=== PATIENT | female | born 1950 | race Caucasian/White ===

== ENCOUNTER 2025-01-19 16:40 | Emergency (ER) | payer MEDICARE, SELFPAY ==
[2025-01-19 17:59] VITALS: BP 122/63; PULSE 85; RESP 18; TEMP 37.3; O2SAT 97; BMI 30.4
--- NOTE | 2025-01-19 18:00 | ED_ITS ---
HPI - General Adult General Date Seen: 01/19/25 Chief complaint: Diarrhea Stated complaint: dehydrated, diarrhea, fatigue Time Seen by Provider: 01/19/25 17:59 History of Present Illness HPI narrative: 74 yo F with a past surgical history including Neil-en-Y gastric bypass (done by a surgeon at [facility] for about 17 years ago), appendectomy, and past medical history including recent diagnosis of hypertension and tremor (on propranolol) depression/anxiety (on fluoxetine) presenting to the ER today with her son and [id number]. Her concerns are diarrhea, generalized weakness and fatigue, also abdominal bloating and early satiety. She has been healthy and well over the past several years. She actually took a [place] through [facility] couple of months ago (along [place] [employer] [place] with stops in [facility]). She was not sick on her trip. She notes that after she got back from the trip, roughly early December she since then she has had trouble with her early satiety. Her appetite may be normal and she generally can feel hungry but whenever she eats she feels like her stomach starts to get full after a few bites and she just feels a bit nauseous, a bit bloated, and no longer hungry. She has been trying to drink fluids and stay hydrated. This is been lingering now for several weeks. Not really getting better, not getting worse. She flew from her home in [place], [place] a couple of days ago here to [place]. She is here to stay with her son and oivdjohh-si-bfe to help out when they were new baby is born. She does not have any known food suspicious food exposure. No recent antibiotics. Beginning 3 days ago on Saturday she has also developed diarrhea. She has multiple episodes of diarrhea per day. For the 1st couple of days the diarrhea was watery and brown and chunky. Today it is also kind of a light brownish gold mucus. No blood. Her nausea and bloating on our really changed. She is not running a fever. She is not really having much abdominal pain. She is just feeling weak and run down as if she is dehydrated. According to records from the [facility] records she did have a nurse triage phone call yesterday on 01/18. She is visiting from [place]. She was recently on a river cruise. She apparently had called in with abdominal bloating, diarrhea, poor appetite, low energy. Related Data Home Medications ?Medication ?Instructions ?Recorded ?Confirmed fluoxetine 40 mg capsule 40 mg PO DAILY 01/19/2501/05 propranolol 20 mg tablet 20 mg PO BID 01/19/25 Previous Rx's ?Medication ?Instructions ?Recorded loperamide 2 mg capsule (Imodium 2 mg PO Q4H PRN loose stool #10 01/19/25 A-D) caps ondansetron 4 mg disintegrating 4 mg PO Q8H PRN nausea and 01/19/25 tablet vomiting #10 tabs sulfamethoxazole 800 1 tab PO Q12H 5 days #10 tab s 01/19/25 mg-trimethoprim 160 mg tablet (Bactrim DS) Allergies Allergy/AdvReac Type Severity Reaction Status Date / Time No Known Drug Allergies Allergy Verified 01/19/25 19:56 Exam Narrative: Exam Narrative: Constitutional: Appears well-developed and well-nourished. Alert. Conversant. Non toxic. HENT: Head: Atraumatic. Nose: Nose normal. Mouth/Throat: Oral mucosa is clear . Mucous membranes are dry but not desiccated and cracked.. no trismus. Pharynx normal. Tonsils symmetric. No tonsillar enlargement, erythema, or exudate. Eyes: Conjunctivae normal. EOM normal. Pupils equal, round, and reactive to light. No scleral icterus. Neck: Normal range of motion. Neck supple. No tracheal deviation present. Cardiovascular: Normal rate, regular rhythm. No gallop. No friction rub. No murmur heard. Symmetric radial artery pulses Pulmonary/Chest: Effort normal. No stridor. No respiratory distress. No wheezes. No rales. No rhonchi . Abdominal: Soft. Bowel sounds normal. No distension. No mass. No tenderness. No rebound. No guarding. No masses. No CVA tenderness. Musculoskeletal: RUE: Normal range of motion. No tenderness. No deformity LUE: Normal range of motion. No tenderness. No deformity RLE: Normal range of motion. No edema. No tenderness. No deformity LLE: Normal range of motion. No edema. No tenderness. No deformity Neurological: Alert and oriented to person, place, and time. Normal strength. CN II-VII intact. No sensory deficit. GCS eye subscore is 4. GCS verbal subscore is 5. GCS motor subscore is 6. Normal coordination Skin: Skin is warm and dry. No rash noted. No pallor. Normal capillary refill. Psychiatric: Normal mood. Normal affect. Const: Vital Signs, click to edit/add: Vital Signs - 24 hr 01/19/25 17:59 Temperature 99.2 F Pulse Rate [Right Pulse Oximeter] 85 Respiratory Rate 18 Blood Pressure [Ri ght Upper Arm] 122/63 Pulse Oximetry 97 Oxygen Delivery Me thod Room Air Course Vital Signs Vital signs: Initial Vital Signs Temperature 99.2 F 01/19/25 17:59 Temperature Source Temporal Artery Scan 01/19/25 17:59 Pulse Rate 85 01/19/25 17:59 Pulse Rhythm Regular 01/19/25 17:59 Pulse Strength 3+ Normal 01/19/25 17:59 Respiratory Rate 18 01/19/25 17:59 Blood Pressure 122/63 01/19/25 17:59 Blood Pressure Mean 82 01/19/25 17:59 Blood Pressure Position Sitting 01/19/25 17:59 Pulse Oximetry 97 01/19/25 17:59 Oxygen Delivery Method Room Air 01/19/25 17:59 Vital Signs Temperature 99.2 F 01/19/25 17:59 Pulse Rate 85 01/19/25 17:59 Respiratory Rate 18 01/19/25 17:59 Blood Pressure 122/63 01/19/25 17:59 Pulse Oximetry 97 01/19/25 17:59 Oxygen Delivery Method Room Air 01/19/25 17:59 Temperature 99.2 F 01/19/25 17:59 Pulse Rate 85 01/19/25 17:59 Respiratory Rate 18 01/19/25 17:59 Blood Pressure 122/63 01/19/25 17:59 Pulse Oximetry 97 01/19/25 17:59 Oxygen Delivery Method Room Air 01/19/25 17:59 Medications Administered Medications: Discontinued Medications Generic Name Dose Route Start Last Admin Trade Name Freq PRN Reason Stop Dose Admin Sodium Chloride 1,000 mls @ 1,000 mls/hr 01/19/25 18:30 01/19/25 19:42 0.9 % Sodium Chloride 1000 Ml IV 01/19/25 19:29 Infused .Q1H PIERRE Infusion Ceftriaxone Sodium 1 gm/ 100 mls @ 200 mls/hr 01/19/25 19:46 01/19/25 20:48 Sodium Chloride IVPB 01/19/25 19:47 Infused ONCE ONE Infusion Ondansetron HCl 4 mg 01/19/25 18:30 01/19/25 18:59 Ondansetron 2 Mg/Ml Inj IVP 01/19/25 18:31 4 mg ONCE ONE Administration Potassium Bicarbonate 50 meq 01/19/25 19:45 01/19/25 20:03 Potassium Bicarb 25 Meq Effervescent Tab PO 01/19/25 19:46 50 meq ONCE ONE Administration Medical Decision Making MDM Narrative Medical decision making narrative: 74-year-old female with a history of gastric bypass surgery presenting to the ER today with about a 1 month or 6 week history of early satiety and bloating with eating small amounts of food now superimposed with a 3 day history of a diarrhea illness with mostly liquidy diarrhea but some mucousy diarrhea today. Differential is broad. The patient's symptoms and exam could be consistent with a viral GI infection. There is no high fever, severe pain, bilious or bloody emesis, blood in the stool, severe abdominal pain, but she did have some mucousy diarrhea today. She also recently had traveled to [place] about 2 months ago. Therefore will order stool culture. Although she has no recent antibiotics will also add on C diff. it sounds like her travel was to [place] where there is generally good sanitation and she has no specific high risk food exposure. No other recent travel. She has a low-grade fever. Labs show leukopenia and mild thrombocytopenia which could be related to viral illness. Hemoglobin is normal. Sodium low, potassium lower leg related to GI losses. BUN and creatinine are normal. Anion gap is normal. Glucose normal. Venous lactic is normal, arguing against bowel ischemia. Transaminases are mildly abnormal with an AST 100 and ALT of 63. Total bili and alk-phos are normal. These LFT findings are nonspecific. She is not having any abdominal pain or any pain in the right upper quadrant. Lipase is normal at 222. Because of her history Neil-en-Y gastric bypass with her symptoms, we did do a CT scan to see if there was any signs of internal hernia or bowel obstruction or other acute inflammatory process causing her diarrhea such as diverticulitis or colitis. CT scan is normal. I don't see any evidence for complication of her bypass, or colitis, or diverticulitis, or appendicitis, bowel obstruction, abscess, bowel perforation, or other surgical emergency. Labs show no concerning electrolyte disturbance or renal failure. After meds given the patient is feeling better. At this point, the patient is non-septic appearing and well hydrated.I think the patient can be managed as an outpatient. She received IV saline here in the ER and was feeling better and less weak. Low potassium was supplemented with oral potassium bicarbonate. She was tolerating p.o. intake with a few oz of water and a few crackers. This is about which she has been taking in for the past several weeks, perhaps a little bit more. Generally doing well. We have discussed oral rehydration strategies. They understand and can perform the needed interventions at home. I have provided a prescription for antiemetics to facilitate oral hydration (zofran ODT) and imodium for diarrhea. We have discussed the signs and symptoms of worsening dehydration. They understand the need for immediate reevaluation if any of these symptoms occur. They are also directed to obtain close outpatient follow up within 2-3 days. Lab Data Labs: Lab Results 01/19/25 01/19/25 Range/Units 18:31 18:55 WBC 3.34 L (4.50-11.00) K/uL RBC 3.49 L (4.00-5.20) m/uL Hgb 12.4 (12.0-16.0) gm/dL Hct 37.8 (33.0-51.0) % MCV 108 H (80-100) fL MCH 36 H (26-34) pg MCHC 33 (32-36) gm/dL RDW Coeff of Jennie 14.3 (11.5-15.5) % Plt Count 139 L (140-440) K/uL Neut % (Auto) 69.1 (42.0-72.0) % Lymph % (Auto) 13.2 L (20-44) % [place] % (Auto) 14.1 H (0.0-11.0) % Eos % (Auto) 2.7 (0.0-7.0) % Baso % (Auto) 0.6 (0.0-3.0) % Neut # (Auto) 2.30 (1.7-7.0) K/uL Lymph # (Auto) 0.40 L (0.90-2.90) K/uL Limestone # (Auto) 0.50 (0.00-0.90) K/UL Eos # (Auto) 0.10 (0.00-0.50) K/uL Baso # (Auto) 0.00 (0.00-0.30) K/uL Abs Immat Gran (auto) 0.00 (0.00-0.30) K/uL Imm/Tot Granulo (auto) 0.3 % Sodium 134 L (135-149) mmol/L Potassium 3.3 L (3.6-5.1) mmol/L Chloride 101 (96-114) mmol/L Carbon Dioxide 26 (20-32) mmol/L Anion Gap 7 (7-15) mEq/L BUN 5 L (7-30) mg/dL Creatinine 0.6 (0.5-1.5) mg/dL Estimated Creat Clear 50.54 Estimated GFR 95 ml/min Glucose 116 H (60-115) mg/dL Lactate 1.4 (0.5-1.9) mmol/L Calcium 9.6 (8.4-10.6) mg/dL Total Bilirubin 0.7 (0.1-1.5) mg/dL AST 100 H (12-35) U/L ALT 63 H (4-35) U/L Alkaline Phosphatase 123 (40-150) U/L Total Protein 7.2 (6.0-8.3) g/dL Albumin 3.8 (3.3-5.0) g/dL Lipase 222 (23-300) U/L Urine Color Blossom A (Yellow) Urine Appearance Clear (Clear) Urine pH 6.0 (5.0-8.5) Ur Specific [place] 1.025 (1.000-1.030) Urine Protein 1+ A (Negative) Urine Glucose (UA) Negative (Negative) Urine Ketones 2+ A (Negative) Urine Blood 1+ A (Negative) Urine Nitrite Positive A (Negative) Urine Bilirubin Negative (Negative) Urine Urobilinogen 0.2 (0.2-1.0) Ur Leukocyte Esterase 1+ A (Negative) Urine RBC 2-5 A (0-2) Urine WBC 5-10 A (0-5) Ur Squamous Epith Cells Moderate A (None-Few) Urine Bacteria Moderate A (None) Fine Granular Casts Few A (None) Monoscreen Negative (Negative) Imaging Data CT scan - abdomen: Attestation: I have reviewed the pertinent imaging results. Radiologist's impression: IMPRESSION: No acute intra-abdominal/pelvic abnormality. Hepatic steatosis. Discharge Plan Discharge Clinical Impression: Diarrhea, Dehydration, Acute hypokalemia, Abnormal LFTs, Acute UTI Patient Disposition: Home, Self-Care Condition: Guarded Instructions: Dehydration (ED), Urinary Tract Infection in Women (DC), Acute Diarrhea (ED) Additional Instructions: As we discussed, the cause for symptoms is not clear at this time. We suspect that your diarrhea is probably caused by an infection. Your lab results suggest the infection may be viral but given your recent travel and the mucus in your stool we have ordered a stool culture to check for bacterial infections causing your diarrhea. If your cultures come back positive with bacteria someone from the hospital will contact you and put you on the right antibiotic. If your infection is viral, it may take a few more days and it should get better on its own. Urine sample is abnormal, suggesting you have a bladder infection. Please take the antibiotic twice a day to treat your bladder infection. The ER will contact you by phone if your urine culture grows unusual strain of bacteria or if we need to change the antibiotic for your UTI. If you are not dramatically improved within 72 hours, please recheck with your doctor's office or come back to the ER for a recheck. While you are sick, do your best to drink plenty of fluids and stay hydrated. You can use the Zofran prescription medication if needed for nausea. You can use Imodium as needed for diarrhea. Imodium is available [email or web address], but I did send a prescription for Imodium to your pharmacy at [facility] (you can purchase the Imodium by prescription or OTC, whichever is less expensive). Your lab work shows that your blood counts (white blood cells and platelets) are slightly low and your liver function tests are slightly off. These could be related to the same infection. However it is very important for you to get a checkup with your regular doctor within the next couple of weeks to have these labs rechecked. Prescriptions: New loperamide [Imodium A-D] 2 mg capsule 2 mg PO Q4H PRN (Reason: loose stool) Qty: 10 0RF Rx Instructions: administer after each loose stool until symptoms controlled; do not exceed 8 mg per 24 hrs sulfamethoxazole-trimethoprim [Bactrim DS] 800-160 mg tablet 1 tab PO Q12H 5 Days Qty: 10 0RF ondansetron 4 mg tablet,disintegrating 4 mg PO Q8H PRN (Reason: nausea and vomiting) Qty: 10 0RF No Action propranolol 20 mg tablet 20 mg PO BID fluoxetine 40 mg capsule 40 mg PO DAILY Follow Up/Referrals: Provider,Not a Local [Primary Care Provider, Family Practice] Stand Alone Forms: [employer] Info Instructions
[2025-01-19 18:48] LABS: Appearance Urine Clear (Clear)
--- OUTSIDE RECORDS SUMMARY | 2025-01-19 18:52 | XMS_ITS | Data Portability ---
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 Plan of Treatment Reminders Order Date Submit Date Provider Last Modified By Organization Details Last Modified Time Details Appointments None recorded. Lab None recorded. Referral None recorded. Procedures None recorded. Surgeries None recorded. Imaging XR, knee, 3 view - VIEW RIGHT: Knee (B/L PA Standing, Lateral, [place]) CPT: 44076,RT 2023 024 [email or web address] 17 [facility], Replaced by [facility] [address], [facility] [place] [address], [place], [address], 4 09:49:50 Medication Orders Voltaren Arthritis Pain 1 % topical gel 2023 024 [email or web address] [id number], [address], [place], [address], 4 19:53:21 Patient TargetsNo targets recorded. Patient Instructions Encounter Date Encounter Id Patient Instructions Last Modified By Organization Details Last Modified Time 10/08/2023 [id number] learning about healthy weight [email or web address] Not available 10/08/2023 19:38:16 Reason for Referral None Reported. Results Created Date Observation Date Name Description Value Unit Range Abnormal Flag Note LastModifiedBy Organization Detail LastModifiedTime 10/08/19 24 XR, knee, 3 view No observ ation record ed. [email or web address] [facility] [address], [place], [address], 10/09/2023 09:49:49 Result Notes None recorded. Problems Name Problem SNOMED Code Status Onset Date Resolution Date Notes Provider Name and Address Organization Details Recorded Time Knee joint prosthesis present 375740122003 Active 2023 Rebecca robles [facility] 4 09:50:26 Problem Notes None recorded. Procedures Surgical History Date Name Laterality Status Provider Name and Address Organization Details Recorded Time 3 Most Recent Bone Density completed Merle Kamara [facility] 10/08/2023 17:35:40 Imaging Results None recorded. Procedure Notes None recorded. Medical Equipment None Reported. Allergies No known drug allergies Medications Name Sig Start Date Stop Date Status Note LastModified by Organization Details LastModified Time amoxicillin 500 mg capsule TAKE 4 CAPSULES BY MOUTH 1 HOUR BEFORE DENTAL PROCEDURE 10/05 completed Not Available Not Available Not Available promethazin e-DM 6.25 mg-15 mg/5 mL oral syrup TAKE 5 ML BY MOUTH EVERY 6 HOURS NEEDED 10/05 completed Not Available Not Available Not Available azithromyci n 250 mg tablet TAKE 2 TABLETS BY MOUTH TODAY, THEN TAKE 1 TABLET DAILY FOR 4 DAYS DIRECTED 10/05 completed Not Available Not Available Not Available benzonatate 200 mg capsule TAKE 1 CAPSULE BY MOUTH 3 TIMES A DAY FOR 7 DAYS NEEDED FOR COUGH 10/05 completed Not Available Not Available Not Available valacyclovi r 500 mg tablet TAKE 1 TABLET BY MOUTH EVERY 12 HOURS FOR 10 DAYS 10/05 completed Not Available Not Available Not Available amoxicillin 500 mg tablet Take 4 tablets by mouth 1 hour before dental procedure 10/05 completed Not Available Not Available Not Available acyclovir 800 mg tablet TAKE 1 TABLET BY MOUTH TWICE A DAY ( EVERY 12 HOURS ) FOR 5 DAYS AT THE OUTBREAK OF SYMPTOMS 10/05 completed Not Available Not Available Not Available ipratropium bromide 42 mcg (0.06 %) nasal spray INSTILL 2 SPRAYS INTO BOTH NOSTRILS THREE TIMES DAILY FOR 14 DAYS 10/05 completed Not Available Not Available Not Available fluoxetine 20 mg capsule TAKE 1 CAPSULE BY MOUTH EVERY DAY active Not Available Not Available No t Available doxycycline hyclate 100 mg tablet TAKE 1 TABLET BY MOUTH TWICE A DAY 10/05 completed Not Available Not Available Not Available diclofenac 1 % topical gel APPLY 2 GRAMS TO THE AFFECTED AREA(S) BY TOPICAL ROUTE 4 TIMES PER DAY active Not Available Not Available No t Available Paxlovid 300 mg (150 mg x 2)-100 mg tablets in a dose pack TAKE 3 TABLETS BY MOUTH TWICE A DAY FOR 5 DAYS 10/05 completed Not Available Not Available Not Available Vitals Date Recorded Body height Body mass index (BMI) Body weight Provider Name and Address Organization Details Last Updated DateTime 10/08/2023 175.26 cm 30 kg/m2 17147.61 g Rebecca Nash [facility] 10/08/2023 18:35:33 Social History Question Answer Notes LastModified by Organizat ion Details LastModified Time Tobacco Smoking Status Never Smoker Merle robles [facility] 10/08/2023 17:35:49 Last Dental Exam 09/12/2022 [email or web address] Informat ion not available 10/08/2023 Are You On Disability Or Applying For It? No [email or web address] Information not available 10/08/2023 Employment Status Part-time Information not available 02/23/2021 Last Day Of Work 10/03/2023 Informat ion not available 10/08/2023 Illicit Drug Use? No Information not available 02/23/2021 What Was The Date Of Your Most Recent Tobacco Screening? 10/08/2023 [email or web address] Information not available 10/08/2023 Has Tobacco Cessation Counseling Been Provided? No [email or web address] Information not available 10/08/2023 Sex: Unknown Functional Status Question Answer Note LastModified by Organizat ion Details LastModified Time Do you use any illicit or recreational drugs? No [email or web address] Information not available 10/08/2023 What is your level of alcohol consumption? 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 Family History Relationship Description Onset Age of this Age Resolved Age Notes LastModified by Organization Details LastModified Time Unspecified Relation Family history unknown First Degree Blood Relati ve [email or web address] Not available 02/22/2021 22:40:26 Medical History Condition Response Depression Y Gynecological History Statement/Question Response Most Recent Bone Density 09/19/2022 Obstetrics History GPAL:G 0 P 0 0 0 0 Past Encounters Encounter ID Performer Location Encounter Start Date Encounter Closed Date Diagnosis/Indication Diagnosis SNOMED-CT Code Diagnosis ICD10 Code Diagnosis Note [id number] Jerrell Wood MD [facility] [place] [address] [address] 10/08/2023 17:26:39 10/08/2023 19:20:27 Pain in right knee 3788217689 17664 M25.561 Increased body mass index 10157076 E66.3 Patient was educated about healthy weight Knee joint prosthesis present 0073853172 02 Z96.651 M25.561 M25.461 73 year old female with history of right total knee arthroplas ty done in 2007. Total knee implants in good alignment without signs of loosening and no other acute osseous abnormalit ies noted. Patient is clinically and radiograph ically stable. I have prescribed Voltaren gel to treat inflammati on in the knee. If the pain in her right knee continues we will obtain a bone scan study. Follow-up for yearly surveillan ce with new x-rays, certainly sooner if needed. Patient voiced understand ing, agreement and willingnes s to proceed with the plan. All questions were answered in detail and to patient satisfacti on. Health Concerns Section Related Observation LastModified by Organization Detai ls LastModified Time None Recorded Concern Status LastModified by Organization Details LastModified Time None Recorded Advance Directives Directive None Recorded Payers Insurance Date Sequence Insurance Name Policy Number Policy Rios Covered Member ID Rios Member ID Guarantor Name 10/10/2023 2 [employer] (MEDICARE SUPPLEMENT) Lauren Giron [id number] Lauren Giron 10/04/2023 1 MED[place] (MEDIC[place] Lauren Giron [id number] Lauren Giron Notes Date Note Type Note Provider Name and Address Organization Details Recorded Time 10/08/2023 text/html Patient QuestionsReported bypatient.What is the main reason we are seeing you today?pain Which body parts are primarily affected?knee - right Approximately how long ago did the problem start?10+ years; 2 weeks How did the problem begin?no specific incident or unknown Which best describes the recent course of you symptoms?worsening Have you had any prior nonsurgical treatment for this problem?OTC medications - helped a lot Have you had any prior testing for this problem?x-rays Have you had any prior surgery for this problem?yes; R TKA 2007 DR. LAURITA FOSS Were you seen in an emergency room or urgent care?no Do you have any current work restrictions?noKneeRep orted bypatient.Pain level:right knee - 01/14 Timing:occasional; related to activity Quality:aching; sharp; stabbing Aggravating factors:walking; standing Alleviating factors:heat Associated symptoms:none The patient presents for evaluation of right knee pain. She underwent right total knee arthroplasty in [address] Laurita Foss. The knee did well for many years. She has noted the more recent onset of medially based right knee pain with activity. Initial movements after sitting for a long time feel painful, describes the pain as sharp. However, once she gets going, the pain resolves by itself. Taking Advil helps reduce the pain and discomfort temporarily. Patient was doing well until about one month ago. She does not recall any injury or trauma to the area. Her left knee was replaced 5 years ago (2017) with Dr. Harper. The [place] [address],[place] [address], [place], [address], [facility] 10/09/2023 21:07:02 OBGyn Episode No OBEpisode recorded.
--- OUTSIDE RECORDS SUMMARY | 2025-01-19 18:52 | XMS_ITS | Data Portability ---
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 Cancer screening was reviewed and updated as necessary based on patient's age and risks. Osteoporosis screening was reviewed and discussed. Patient was screened for future falls risk using the CDC s STEADI questions. [email or web address] Not available 12/02/2019 17:25:54 Plan of Treatment Reminders Order Date Submit Date Provider Last Modified By Organization Details Last Modified Time Details Appointments None recorde d. Lab hepatit is C virus Ab, serum 2020 021 [email or web address] Ismael_phxbetty colby MD Lab, [address], [place], [address], 10:57:46 HbA1c (hemogl obin A1c), blood 2020 021 [email or web address] Ismael_phxbetty colby MD Lab, [address], [address], [place], [address], 10:57:45 CBC 2020 021 [email or web address] Ismael_phkristyn colby MD Lab, [address], [address], [place], [address], 10:57:45 CMP, serum or plasma 2020 021 rbeamLisa colby MD Lab, [address], [address], [place], [address], 10:57:45 lipid panel, serum 2020 021 rbeaLisa colby MD Lab, [address], [address], [place], [address], 10:57:46 TSH, serum, reflex free T4 2020 021 rbdean colby MD Lab, [address], [address], [place], [address], 10:57:46 vitamin B12, serum 2020 021 [email or web address] colby MD Lab, [address], [address], [place], [address], 10:57:45 vitamin D, 25-hydr oxy, total, serum 2020 021 [email or web address], [address], [address], [place], [address], 10:57:45 iron, serum 2020 021 rbcandidaLisa colby MD Lab, [address], [address], [place], [address], 10:57:46 ferriti n, serum or plasma 2020 021 [email or web address] _phx_giovana colby MD Lab, [address], [place], [address], 1 10:57:46 TIBC (total iron-bi nding capacit y), serum 2020 021 [email or web address] _phx_giovana colby MD Lab, [address], [place], [address], 1 10:57:46 vitamin B12, serum 2019 020 [email or web address] Ismael_phxbetty colby MD Lab, [address], [address], [place], [address], 0 10:46:07 folate, serum 2019 020 [email or web address] _phxbetty colby MD Lab, [address], [address], [place], [address], 0 10:46:07 magnesi um, RBC 2019 020 [email or web address] _phx_giovana colby MD Lab, [address], [place], [address], 0 10:46:07 lipid panel, serum 2019 020 [email or web address] _phx_giovana colby MD Lab, [address], [place], [address], 0 10:46:07 CBC 2019 020 [email or web address] Vm_phx_giovana colby MD Lab, [address], [place], [address], 0 10:46:07 CMP, serum or plasma 2019 020 [email or web address] Vm_phx_giovana colby MD Lab, [address], [place], [address], 0 10:46:07 Referral gastroe nterolo gist referra l 2020 021 DORIAN Luna Chatman, [address], [place], [address], 2 23:41:56 gastroe nterolo gist referra l 2019 020 [facility] Luna Chatman, [address], [address], [place], [address], 0 16:55:43 Procedures None recorde d. Surgeries None recorde d. Imaging MAMMO, screeni ng, digital , bilater al 2020 021 [email or web address] Not available 1 11:16:42 DEXA 2019 020 [email or web address] Not available 0 10:45:20 MAMMO, screeni ng, digital , bilater al 2019 020 [email or web address] Not available 0 10:45:20 Medication Orders fluoxet ine 20 mg capsule 2019 020 [email or web address] [facility]Ph[facility]acy #[id number], [address] [facility] , [place], [address], 1 13:09:35 Tuberso l 5 tub. unit/0. 1 mL intrade rmal injecti on solutio n 2019 020 [email or web address] Not available 0 10:39:34 Patient TargetsNo targets recorded. Patient Instructions Encounter Date Encounter Id Patient Instructions Last Modified By Organization Details Last Modified Time 12/04/2019 [id number] ANNUAL WELLNESS VISIT ASSESSMENT AND PERSONALIZED WELLNESS PLAN * To promote good health please follow these recommendations: Diet, Physical Activity and Healthy Weight: -Eat a diet low in trans and saturated fats and high in fiber, fruits and vegetables -Take 0551-6912 mg of calcium through diet and supplements -Engage in regular physical activity and weight bearing exercise -Aim to achieve and maintain ideal body mass index Tobacco and Alcohol Use: -Don't smoke or use other tobacco products -Avoid excessive alcohol intake Medications: -If you use any medications (prescriptions, hbuz-ghi-feizlaf, supplements, herbal), always do so as directed by your health care provider -Avoid misuse of any substances in a manner that is not in accordance with appropriate use Safety: -Use seat belts whenever in the car -Use sunscreen regularly to reduce the risk of skin cancer -Test smoke detectors and CO detectors every 6 months -Remove loose rugs and use hand rails on steps and in bath Cognition: -Being intellectually engaged may benefit the brain. Lots of activities can keep your mind active. For example, read books and magazines. Play games. Take or teach a class. Learn a new skill or hobby. Work or volunteer. -People who engage in meaningful activities, like volunteering or hobbies, say they feel happier and healthier. Vaccinations: -Get your yearly influenza vaccine Screenings Breast Cancer Screening (Mammogram): Next due 01/06/2020 Cervical Cancer Screening (Pap Smear): Not needed Osteoporosis Screening (Bone Density Scan/DEXA): Next due- now Colorectal Cancer Screening: Colonoscopy next due- now Immunizations: Pneumococcal Conjugated Vaccine (PCV13): Completed Pneumococcal Polysaccharide Vaccine (PPSV 23): Completed Influenza (Flu) Vaccine: Due next fall/winter Advance Care Plan/Directives: Advance Care Plan/Directives already in place If you have any questions with regards to your care plan, or need to schedule an appointment, please contact our office. *Recommended services are based on (a) services covered by Medicare, (b) U.S. Preventive Services Task Force & Advisory Committee on Immunization Practices guidelines, and (3) individual health status and risks [email or web address] Not available 12/04/2019 11:10:46 02/01/2021 [id number] pneumococcal polysaccharide vaccine: care instructions Not available 02/02/2021 00:03:12 advance care planning: care instructions Not available 02/01/2021 13:18:58 advance directives: care instructions [email or web address] Not available 02/01/2021 13:18:58 It was good to s ee you in the office today for your Medicare Annual Wellness Visit. You have been provided some information on healthy nutrition, including a diet rich in fruits and vegetables, minimizing simple carbohydrates, salt, and saturated fats. I want to encourage regular cardiovascular exercise such as walking at least 30 minutes daily, 5 times per week. Please remember to schedule any preventive health measures that we talked about today. You have also been provided education on fall prevention and community-based lifestyle interventions to help reduce health risks and promote healthy living in your Annual Wellness folder. Screening Recommendations 1. Vaccines Pneumonia: Ordered PCV 23 Influenza: This Fall. 2. Mammography Screening: Ordered 3. Colorectal Cancer Screening: Colonoscopy (every 5years) Ordered 4. Annual Depression Screening 5. Annual Alcohol Screening 6. Annual Fall Risk Screening 7. Annual Health Risk Assessment Not available 02/01/2021 13:18:21 3 mof up for depression Not available 02/01/2021 13:20:41 Reason for Referral Darklight Inspector Referral for Screening for malignant neoplasm of colon eval and treat Referring Physician: Margarito Rosenberg, Family Medicine, Encounter Date: 12/04/2019 Darklight Inspector Referral for Screening for malignant neoplasm of colon Referring Physician: Denzel Thakkar, Family Medicine, Encounter Date: 02/01/2021 Results Created Date Observation Date Name Description Value Unit Range Abnormal Flag Note LastModifiedBy Organization Detail LastModifiedTime 02/23/20 21 02/22/2021 TIBC iron 117.0 ug/dL 49.1 - 213.0 Not Available Ismael_bronwyn colby MD Lab [address] [facility] [address], [place], [address], 02/22/2021 16:58:20 02/23/20 21 02/22/2021 TIBC TIBC(calcula jono) 323.1 ug/dL 149.0 - 451.4 Not Available Mary colby MD Lab [address], [place], [address], 02/22/2021 16:58:20 02/23/20 21 02/22/2021 TIBC iron saturation(c alculated) 36 % 15 - 50 Not Available Mary colby MD Lab [address] [place] [address], [place], [address], 02/22/2021 16:58:20 02/23/20 21 02/22/2021 ENRIQUE TIN ferritin 206.8 NG/mL 10.5 - 306.8 Not Available Mary colby MD Lab [address] [place] [address], [place], [address], 02/22/2021 16:58:21 02/23/20 21 02/23/2021 HEP C VIRUS AB HEP C AB ONLY HCV hep C virus Ab <0.1 s/co_ ratio 0.0-0. 9 Negat cody: < 0.8 Indet ermin ate: 0.8 - 0.9 Posit cody: > 0.9 The CDC recom mends that a posit cody HCV antib araseli resul t be follo wed up with a HCV Nucle ic Acid Ampli ficat ion test (5507 13). Not Available Mary colby MD Lab [address] [place] [address], [place], [address], 02/23/2021 11:22:11 02/23/20 21 02/22/2021 CBC WBC 3.7 10 3.9 - 10.0 low Not Available Mary colby MD Lab [address] [place] [address], [place], [address], 02/23/2021 11:22:11 02/23/20 21 02/22/2021 CBC RBC 4.23 10 3.93 - 6.08 Not Available Mary colby MD Lab [address] [place] [address], [place], [address], 02/23/2021 11:22:11 02/23/20 21 02/22/2021 CBC hemoglobin 14.1 g/dL 11.2 - 17.5 Not Available Marvinxbetty lasha [facility] [address] [place] [address], [place], [address], 02/23/2021 11:22:11 02/23/20 21 02/22/2021 CBC hematocrit 43.7 % 34.2 - 51.4 Not Available Ismael_phxbetty colby MD Lab [address] [place] [address], [place], [address], 02/23/2021 11:22:11 02/23/2002/22/2021 CBC MCV 103 U 79 - 100 high Not Available Darinphxbetty colby MD Lab [address] [place] [address], [place], [address], 02/23/2021 11:22:11 02/23/20 21 02/22/2021 CBC MCH 33.3 % 25.6 - 32.3 high Not Available Darinphxbetty colby MD Lab [address] [place] [address], [place], [address], 02/23/2021 11:22:11 02/23/20 21 02/22/2021 CBC MCHC 32.3 % 32.2 - 36.5 Not Available Marvinxbetty colby MD Lab [address] [place] [address], [place], [address], 02/23/2021 11:22:11 02/23/20 21 02/22/2021 CBC RDW 12.6 % 11.6 - 14.4 Not Available Darinphxbetty colby MD Lab [address] [place] [address], [place], [address], 02/23/2021 11:22:11 02/23/20 21 02/22/2021 CBC segmented neutrophils % 45.9 % 34.0 - 71.1 Not Available Vm_phx_giovana e Lab [address] [address], [place], [address], 02/23/2021 11:22:11 02/23/20 21 02/22/2021 CBC segmented neutrophils # 1.68 10 1.56 - 6.13 Not Available Vm_phx_giovana e Lab [address] [address], [place], [address], 02/23/2021 11:22:11 02/23/20 21 02/22/2021 CBC lymphocytes % 35.2 % 19.3 - 53.1 Not Available Ismael_phx_giovana e Lab [address] [address], [place], [address], 02/23/2021 11:22:11 02/23/20 21 02/22/2021 CBC lymphocytes # 1.29 10 1.18 - 3.74 Not Available Ismael_phx_giovana colby Lab [address] [address], [place], [address], 02/23/2021 11:22:11 02/23/20 21 02/22/2021 CBC monocytes % 10.1 % 4.7 - 12.5 Not Available Ismael_phxbetty colby Lab [address] [address], [place], [address], 02/23/2021 11:22:11 02/23/20 21 02/22/2021 CBC monocytes # 0.37 10 0.24 - 0.86 Not Available Vm_phx_giovana e [facility] [address] [address], [place], [address], 02/23/2021 11:22:11 02/23/20 21 02/22/2021 CBC eosinophils % 7.7 % 0.7 - 7.0 high Not Available Ismael_phx_giovana e Lab [address] [address], [place], [address], 02/23/2021 11:22:11 02/23/20 21 02/22/2021 CBC eosinophils # 0.28 10 0.05 - 0.54 Not Available Mary colby Lab [address] [place] [address], [place], [address], 02/23/2021 11:22:11 02/23/20 21 02/22/2021 CBC basophils % 1.1 % 0.1 - 1.2 Not Available Mary colby Lab [address] [address], [place], [address], 02/23/2021 11:22:11 02/23/20 21 02/22/2021 CBC basophils # 0.04 10 0.01 - 0.08 Not Available Mary lasha [facility] [address] [place] [address], [place], [address], 02/23/2021 11:22:11 02/23/20 21 02/22/2021 CBC platelets 192 10 140 - 420 Not Available Mary lasha [facility] [address] [place] [address], [place], [address], 02/23/2021 11:22:11 02/23/20 21 02/22/2021 COMPR EHENS CODY METAB OLIC PANEL sodium 142 mmol/ L 135 - 145 Not Available Mary lasha [facility] [address] [address], [place], [address], 02/23/2021 11:22:12 02/23/20 21 02/22/2021 COMPR EHENS CODY METAB OLIC PANEL potassium 4.8 mmol/ L 3.5 - 5.2 Not Available Mary lasha [facility] [address] [address], [place], [address], 02/23/2021 11:22:12 02/23/20 21 02/22/2021 COMPR EHENS CODY METAB OLIC PANEL chloride 105 mmol/ L 97 - 108 Not Available Mary colby MD Lab [address] [place] [address], [place], [address], 02/23/2021 11:22:12 02/23/20 21 02/22/2021 COMPR EHENS CODY METAB OLIC PANEL carbon dioxide 30 mmol/ L 20 - 32 Not Available Mary colby MD Lab [address] [place] [address], [place], [address], 02/23/2021 11:22:12 02/23/20 21 02/22/2021 COMPR EHENS CODY METAB OLIC PANEL glucose 84 mg/dL 69 - 99 Not Available Mary colby MD Lab [address] [address], [place], [address], 02/23/2021 11:22:12 02/23/20 21 02/22/2021 COMPR EHENS CODY METAB OLIC PANEL BUN 11 mg/dL 6 - 26 Not Available Stormy colby MD Lab [address] [place] [address], [place], [address], 02/23/2021 11:22:12 02/23/20 21 02/22/2021 COMPR EHENS CODY METAB OLIC PANEL creatinine 0.7 mg/dL 0.5 - 1.4 Not Available Mary colby MD Lab [address] [place] [address], [place], [address], 02/23/2021 11:22:12 02/23/20 21 02/22/2021 COMPR EHENS CODY METAB OLIC PANEL SGOT (AST) 22 U/L 12 - 40 Not Available Mary colby MD Lab [address] [address], [place], [address], 02/23/2021 11:22:12 02/23/20 21 02/22/2021 COMPR EHENS CODY METAB OLIC PANEL SGPT (ALT) 13 U/L 7 - 52 Not Available Brandan colby MD Lab [address] [place] [address], [place], [address], 02/23/2021 11:22:12 02/23/20 21 02/22/2021 COMPR EHENS CODY METAB OLIC PANEL alkaline phosphatase 88 U/L 29 - 121 Not Available Mary colby MD Lab [address] [place] [address], [place], [address], 02/23/2021 11:22:12 02/23/20 21 02/22/2021 COMPR EHENS CODY METAB OLIC PANEL total bilirubin 0.6 mg/dL 0.3 - 1.1 Not Available Mary colby MD Lab [address] [place] [address], [place], [address], 02/23/2021 11:22:12 02/23/20 21 02/22/2021 COMPR EHENS CODY METAB OLIC PANEL calcium 9.3 mg/dL 8.6 - 10.4 Not Available Mary colby MD Lab [address] [place] [address], [place], [address], 02/23/2021 11:22:12 02/23/20 21 02/22/2021 COMPR EHENS CODY METAB OLIC PANEL albumin 4.1 g/dL 3.5 - 5.8 Not Available Mary colby MD Lab [address] [address], [place], [address], 02/23/2021 11:22:12 02/23/20 21 02/22/2021 COMPR EHENS CODY METAB OLIC PANEL total protein 6.7 g/dL 6.0 - 9.0 Not Available Mary colby MD Lab [address] [place] [address], [place], [address], 02/23/2021 11:22:12 02/23/20 21 02/22/2021 COMPR EHENS CODY METAB OLIC PANEL eGFR (non-aa)(adelso culated) 82.46 mL/mi n >60.00 Not Available Mary colby MD Lab [address] [address], [place], [address], 02/23/2021 11:22:12 02/23/20 21 02/22/2021 COMPR EHENS CODY METAB OLIC PANEL eGFR (aa)(calcula jono) 99.78 mL/mi n >60.00 Not Available Mary colby MD Lab [address] [address], [place], [address], 02/23/2021 11:22:12 02/23/20 21 02/22/2021 LIPID PANEL cholesterol 219 mg/dL 69 - 200 high Not Available Mary colby MD Lab [address] [address], [place], [address], 02/23/2021 11:22:13 02/23/20 21 02/22/2021 LIPID PANEL triglyceride s 224 mg/dL 29 - 150 high Not Available Mary colby MD Lab [address] [address], [place], [address], 02/23/2021 11:22:13 02/23/20 21 02/22/2021 LIPID PANEL HDL 55 mg/dL 22 - 93 Not Available Mary colby MD Lab [address] [address], [place], [address], 02/23/2021 11:22:13 02/23/20 21 02/22/2021 LIPID PANEL LDL(calculat ed) 120 mg/dL 0 - 130 Not Available Mary colby MD Lab [address] [address], [place], [address], 02/23/2021 11:22:13 02/23/20 21 02/22/2021 LIPID PANEL cholesterol/ HDL risk(calcula jono) 4.0 mg/dL 2.9 - 5.7 Not Available Mary colby MD Lab [address] [place] [address] [address], [place], [address], 02/23/2021 11:22:13 02/23/20 21 02/22/2021 HGBA1 C W/EAG HGBA1C w/EAG 4.9 % 4.5 - 5.6 Not Available Mary colby MD Lab [address] [place] [address] [address], [place], [address], 02/23/2021 11:22:13 02/23/20 21 02/22/2021 HGBA1 C W/EAG average blood glucose(calc ulated) 94 mg/dL Accor ding to ADA guide lines , hemog lobin A1C <7.0% repre sents optim al contr joshua non-p regna nt diabe tic patie nts. Diffe rent metri cs may apply to speci fic patie nt popul ation s. Stand ards of Medic al Care in Diabe jairo-2 013. Diabe jairo Care. 2013; 36:s1 1-s66 For the purpo se of ofelia savage for the prese nce of diabe jairo: <5.7% Consi stent with the absen ce of diabe jairo 5.7-6 .4% Consi stent with incre ased risk for diabe jairo (pred iabet es) >or 6.5% Consi stent with diabe jairo Diabe tic educa tion recom jared d for A1c >7% Curre ntly, no conse nsus exist s for use of hemog lobin A1C for diagn osis of diabe jairo for child nayana. Not Available Mary colby MD Lab [address] [place] [address] [address], [place], [address], 02/23/2021 11:22:13 02/23/20 21 02/22/2021 TSH WITH REFLE X TO FREE T4 TSH 2.8 uIU/m L 0.5 - 5.3 Not Available Mary colby MD Lab [address] [place] [address], [place], [address], 02/23/2021 11:22:14 02/23/20 21 02/22/2021 VITAM IN B12 vitamin B12 547 pg/mL 230 - 1050 Not Available [facility] [address] [place] [address] [address], [place], [address], 02/23/2021 11:22:14 02/23/20 21 02/22/2021 VITAM IN D vitamin D 37 30 - 100 Defic iency <20 Insuf ficie ncy 21-29 Suffi cienc y 30-10 0 Toxic ity >101 Not Available [facility] [address] [place] [address] [address], [place], [address], 02/23/2021 11:22:15 03/04/20 20 03/04/2020 DEXA, axial skele ton Indica tion: postme kenanaus al; screen ing for osteop orosis ; prior fractu re; Referr ing Provid er: MILAGRO SILVERMAN DO Study: Bone densit ometry was perfor med. Exam Date: March 04, 2020 Access ion number : [id number] Bone Densit y: ------ ------ ------ ------ ------ ------ ------ ------ ------ ------ ----- Region BMD T-scor e Z-scor e Classi ficati on ------ ------ ------ ------ ------ ------ ------ ------ ------ ------ ----- AP Spine (L1-L4 ) 1.071 0.2 2.3 Normal Femora l Neck (Left) 0.642 -1.9 -0.1 Osteop enia Total Hip (Left) 0.760 -1.5 0.0 Osteop enia ------ ------ ------ ------ ------ ------ ------ ------ ------ ------ ----- [facility] Organ[facility] zation criter ia for BMD impres juan f classi fy patien ts as: Normal (T-sco re at or above -1.0), Osteop enia (T-sco re betwee n -1.0 and -2.5), or Osteop orosis (T-sco re at or below -2.5). 10-estellaa r Fractu re Risk(1 ): ------ ------ ------ ------ ------ ------ ------ ------ ------ ------ ----- Major Osteop orotic Fractu re 20% Hip Fractu re 4.0% ------ ------ ------ ------ ------ ------ ------ ------ ------ ------ ----- Report ed Risk Factor s: US (Melita lewis), Neck BMD=0. 642, BMI=30 .3, previo us fractu re, alcoho l use (1) FRAX(R ) Versio n 3.08. Fractu re probab ility calcul ated for an untrea jono patien t. Fractu re probab ility may be lower if the ----- Page Break ----- patien t has receiv ed treatm ent. Impres juan f: The patien t has low bone mass, based on the Left Femora l Neck T-scor e. The patien t has an estima jono ten-ye ar risk of hip fractu re of 4% and an estima jono ten-ye ar risk of major fractu re of 20%, based on the WHO FRAX algori thm. The patien t has risk factor s, includ ing: excess cody alcoho l use, previo us fractu re. Discus juan f: BONE DENSIT Y IS LOW AT ONE OR MORE SKELET AL SITES. THE PATIEN T'S BMD AND CLINIC AL RISK FACTOR S CONTRI BUTE TO THIS PATIEN T'S HIGH RISK OF FRACTU RE. This patien t's lowest T-scor e is low at one or more skelet al sites. It meets the World Health Organi zation 's (WHO) criter ia for low bone mass (T-sco re betwee n -1.0 and -2.5). The patien t's 10-yea r risk of hip fractu re and 10 year risk of a major osteop orotic fractu re as calcul ated by FRAX exceed s the thresh old where pharma cologi adelso therap y is recomm ended by the Nation al Osteop orosis Founda tion (NOF). Carlos Manueleve r, all treatm ent decisi ons requir e clinic al judgme nt and consid eratio n of indivi dual patien t factor s, includ ing patien t prefer ences, comorb iditie s, previo us drug use, risk factor s not captur ed in the FRAX model (e.g., frailt y, falls, vitami n D defici ency, increa sed bone turnov er, interv al signif icant declin e in bone densit y) and possib le under or overes timati on of fractu re risk by FRAX. The patien t should follow a health ful lifest yle (good nutrit ion with adequa te calciu m and vitami n D, and approp riate weight -beari ng exerci se). Follow -Up: Consid er a repeat BMD and Verteb ral Fractu re Assess ment (VFA) exam in 2 years or sooner if medica lly necess mey, to reasse ss this patien t's status . Interp reted By: ADELE HUDDLESTON MD Signat ure Date: 2019 13:26: 58 Perfor med at [facility] [address], and interp reted by ADELE HUDDLESTON MD INTERFACE [facility] [address], [place], [address], 03/04/2020 17:05:37 03/04/20 20 03/04/2020 DEXA, axial skele ton No observ ation record ed. [facility] [address], [place], [address], 03/07/2020 14:27:17 03/04/20 20 03/04/2020 MAMMO , scree janette, bilat eral EXAM: MAMMOG FUENTES 3D DIGITA L SCREEN ING BILATE RAL ACCESS ION: [id number] INDICA TION: Screen ing mammog leroy. Patien t is asympt omatic . COMPAR YAHAIRA: February 03, 2019, MAMMOG FUENTES BILATE RAL DIGITA L SCREEN ING perfor med at [facility]. January 15, 2018, MAMMOG FUENTES BILATE RAL DIGITA L SCREEN [facility]G [facility]. TECHNI QUE: Full field digita l CC and MLO views of both breast s were perfor med. Digita l breast tomosy nthesi s was perfor med and used in the interp retati on of images . Study review ed by Perpetu er Aided Detect ion (CAD). Breast Densit y: The breast parenc hyma is almost entire ly fatty. FINDIN GS: Right Breast : No suspic ious mass, moses ectura l distor tion or cluste r of microc alcifi cation s is identi fied. Left Breast : No suspic ious mass, moses ectura l distor tion or cluste r of microc alcifi cation s is identi fied. IMPRES JUAN F: No mammog raphic signs of malign isidro. ASSESS MENT: BIRADS : 1 - Negati ve RECOMM ENDATI ON: 1. Routin e screen ing mammog leroy Bilate ral in 1 year. In compli ance with MQSA regula tions and ACR guidel valeria, a letter statin g the findin gs of this examin ation will be provid ed to your renuka gold. ----- Page Break ----- Interp reted By: TROY Kingston MD Signat ure Date: 2019 14:05: 01 Perfor med at [facility], and interp reted by TROY Kingston MD INTERFACE [facility] [address], [place], [address], 03/04/2020 18:08:21 03/04/20 20 03/04/2020 MAMMO , scree janette, digit al, bilat eral No observ ation record ed. [id number] [facility] [address], [place], [address], 03/07/2020 14:27:17 08/09/19 22 08/09/2021 MAMMO , scree janette, tomos ynthe sis, bilat eral EXAM: MAMMOG FUENTES 3D DIGITA L SCREEN ING BILATE RAL ACCESS ION: [id number] HISTOR Y: Screen ing mammog leroy. Renuka gold is asympt omatic . COMPAR YAHAIRA: March 04, 2020, MAMMOG FUENTES BILATE RAL 3D DIGITA L SCREEN ING perfor med at [facility]. February 03, 2019, MAMMOG FUENTES BILATE RAL DIGITA L SCREEN ING perfor med at [facility]. TECHNI QUE: Full field digita l CC and MLO views of both breast s were perfor med. Digita l breast tomosy nthesi s was perfor med and used in the interp retati on of images . Study review ed by Comput er Aided Detect ion (CAD). Breast Densit y: The breast parenc hyma is compos ed of scatte red fibrog landul ar densit ies. FINDIN GS: Right Breast : No suspic ious mass, moses ectura l distor tion or cluste r of microc alcifi cation s is identi fied. Left Breast : No suspic ious mass, moses ectura l distor tion or cluste r of microc alcifi cation s is identi fied. IMPRES JUAN F: No mammog raphic signs of malign isidro. ASSESS MENT: BIRADS : 1 - Negati ve RECOMM ENDATI ON: 1. Routin e screen ing mammog leroy Bilate ral in 1 year. In compli ance with MQSA regula tions and ACR guidel valeria, a letter statin g the findin gs of this examin ation will be provid ed to your patien t. ----- Page Break ----- Interp reted By: JERROD ARIAS RD, MD Signat ure Date: 2021 08:47: 55 Perfor med at [facility] and interp reted by JERROD ARIAS RD, MD INTERFACE [employer] [address] [place] [address], [address], 08/09/2021 11:08:20 08/09/19 22 08/09/2021 MAMMO , ofelia savage, digit al, bilat eral No observ ation record ed. RIO RANCHO [employer] [facility] [address] [facility] [address], [place], [address], 08/11/2021 15:42:47 Result Notes Documentation Provider Name and Address Organization Details Recorded Time Dexa, Axial Skeleton : Indication: postmenopausal; screening for osteoporosis; prior fracture; Referring Provider: MARGARITO BARKER DO Study: Bone densitometry was performed. Exam Date: March 04, 2020 Accession number: [id number] Bone Density: ------- Region BMD T-score Z-score Classification ------- AP Spine (L1-L4) 1.071 0.2 2.3 Normal Femoral Neck (Left) 0.642 -1.9 -0.1 Osteopenia Total Hip (Left) 0.760 -1.5 0.0 Osteopenia ------- World Health Organization criteria for BMD impression classify patients as: Normal (T-score at or above -1.0), Osteopenia (T-score between -1.0 and -2.5), or Osteoporosis (T-score at or below -2.5). 10-year Fracture Risk(1): ------- Major Osteoporotic Fracture 20% Hip Fracture 4.0% ------- Reported Risk Factors: [place] (), Neck BMD=0.642, BMI=30.3, previous fracture, alcohol use (1) FRAX(R) Version 3.08. Fracture probability calculated for an untreated patient. Fracture probability may be lower if the ----- Page Break ----- patient has received treatment. Impression: The patient has low bone mass, based on the Left Femoral Neck T-score. The patient has an estimated ten-year risk of hip fracture of 4% and an estimated ten-year risk of major fracture of 20%, based on the WHO FRAX algorithm. The patient has risk factors, including: excessive alcohol use, previous fracture. Discussion: BONE DENSITY IS LOW AT ONE OR MORE SKELETAL SITES. THE PATIENT'S BMD AND CLINICAL RISK FACTORS CONTRIBUTE TO THIS PATIENT'S HIGH RISK OF FRACTURE. This patient's lowest T-score is low at one or more skeletal sites. It meets the World Health Organization's (WHO) criteria for low bone mass (T-score between -1.0 and -2.5). The patient's 10-year risk of hip fracture and 10 year risk of a major osteoporotic fracture as calculated by FRAX exceeds the threshold where pharmacological therapy is recommended by the National Osteoporosis Foundation (NOF). However, all treatment decisions require clinical judgment and consideration of individual patient factors, including patient preferences, comorbidities, previous drug use, risk factors not captured in the FRAX model (e.g., frailty, falls, vitamin D deficiency, increased bone turnover, interval significant decline in bone density) and possible under or overestimation of fracture risk by FRAX. The patient should follow a healthful lifestyle (good nutrition with adequate calcium and vitamin D, and appropriate weight-bearing exercise). Follow-Up: Consider a repeat BMD and Vertebral Fracture Assessment (VFA) exam in 2 years or sooner if medically necessary, to reassess this patient's status. Interpreted By: VICKI HUDDLESTON MD Signature Date: 03/04/2020 13:26:58 Performed at [facility], and interpreted by VICKI HUDDLESTON MD Not Available [facility] 03/04/2020 17:05:37 Mammo, Screening, Bilateral : EXAM: MAMMOGRAM 3D DIGITAL SCREENING BILATERAL INDICATION: Screening mammography. Patient is asymptomatic. COMPARISON: February 03, 2019, MAMMOGRAM BILATERAL DIGITAL SCREENING performed at [facility]. January 15, 2018, MAMMOGRAM BILATERAL DIGITAL SCREENING performed at [facility]. TECHNIQUE: Full field digital CC and MLO views of both breasts were performed. Digital breast tomosynthesis was performed and used in the interpretation of images. Study reviewed by Computer Aided Detection (CAD). Breast Density: The breast parenchyma is almost entirely fatty. FINDINGS: Right Breast: No suspicious mass, architectural distortion or cluster of microcalcifications is identified. Left Breast: No suspicious mass, architectural distortion or cluster of microcalcifications is identified. IMPRESSION: No mammographic signs of malignancy. ASSESSMENT: BIRADS: 1 - Negative RECOMMENDATION: 1. Routine screening mammography Bilateral in 1 year. In compliance with MQSA regulations and ACR guidelines, a letter stating the findings of this examination will be provided to your patient. ----- Page Break ----- Interpreted By: TROY PORTILLO MD Signature Date: 03/04/2020 14:05:01 Performed at [facility], and interpreted by TROY PORTILLO MD Not Available [facility] 03/04/2020 18:08:21 Mammo, Screening, Tomosynthesis, Bilateral : EXAM: MAMMOGRAM 3D DIGITAL SCREENING BILATERAL HISTORY: Screening mammography. Patient is asymptomatic. COMPARISON: March 04, 2020, MAMMOGRAM BILATERAL 3D DIGITAL SCREENING performed at [facility]. February 03, 2019, MAMMOGRAM BILATERAL DIGITAL SCREENING performed at [facility]. TECHNIQUE: Full field digital CC and MLO views of both breasts were performed. Digital breast tomosynthesis was performed and used in the interpretation of images. Study reviewed by Computer Aided Detection (CAD). Breast Density: The breast parenchyma is composed of scattered fibroglandular densities. FINDINGS: Right Breast: No suspicious mass, architectural distortion or cluster of microcalcifications is identified. Left Breast: No suspicious mass, architectural distortion or cluster of microcalcifications is identified. IMPRESSION: No mammographic signs of malignancy. ASSESSMENT: BIRADS: 1 - Negative RECOMMENDATION: 1. Routine screening mammography Bilateral in 1 year. In compliance with MQSA regulations and ACR guidelines, a letter stating the findings of this examination will be provided to your patient. ----- Page Break ----- Interpreted By: CLAUDIA VUONG MD Signature Date: 08/09/2021 08:47:55 Performed at [facility] and interpreted by CLAUDIA VUONG MD Not Available [facility] 08/09/2021 11:08:20 Problems Name Problem SNOMED Code Status Onset Date Resolution Date Notes Provider Name and Address Organization Details Recorded Time Bypass of stomach Active 2019 KAI CORDERO null[place] [facility] 17:30:13 Osteoarthritis 523646404 Active 2019 KAI CORDERO null, [facility] 0 17:30:24 Knee pain Active 2019 KAI CORDERO null, [facility] 0 17:30:35 History of bariatric surgical procedure 694847089 Active 2021 Denzel Thakkar MD [address], [place], [address], [facility]/[place] 2 09:28:12 Major depression in remission 12103593 Active 2021 Denzel Thakkar MD [address], [place], [address], [facility] 2 09:28:38 Problem Notes None recorded. Procedures Surgical History Date Name Laterality Status Provider Name and Address Organization Details Recorded Time 02/06/20 22 Q Medication Review was completed today 1159F/1160F [facility], avoned [facility] 01/24/2022 10:36:26 02/06/20 22 Q Presence or Absence of urinary incontinence was assessed 1090F cancelled [facility] 01/24/2022 10:36:26 02/06/20 22 Q Activities of daily living were assessed(functio nal status) 1170F [facility] 01/24/2022 10:36:26 02/06/20 22 Q Advanced Care plan not currently documented/will provide plan information today 1124F [facility] 01/24/2022 10:36:26 02/06/20 22 AWV 0438/0439 [facility], avoned [facility] 01/24/2022 10:36:26 02/06/20 22 Q Medications obtained, updated, or reviewed G8427 [facility], [place]oned [facility]/[place] 01/24/2022 10:36:26 02/02/20 21 Q Medication Review was completed today 1159F/1160F completed [facility] 01/30/2021 13:39:26 02/02/20 21 Q Presence or Absence of urinary incontinence was assessed 1090F completed [facility] 01/30/2021 13:39:26 02/02/20 21 Q Activities of daily living were assessed(functio nal status) 1170F completed [facility] 01/30/2021 13:39:26 02/02/20 21 Q Advanced Care plan not currently documented/will provide plan information today 1124F completed [facility] 01/30/2021 13:39:26 02/02/20 21 AWV 0438/0439 completed [facility] 01/30/2021 13:39:26 02/02/20 21 Q Medications obtained, updated, or reviewed G8427 completed [facility] 01/30/2021 13:39:26 02/04/20 19 completed [facility] 12/02/2019 17:37:33 06/07/20 18 Knee Replacement completed [facility] 12/04/2019 10:40:52 07/08/19 [facility] [place] 12/02/2019 17:37:14 07/08/19 15 completed [facility] 12/02/2019 17:37:26 07/08/19 15 Most Recent Bone Density completed [facility] 12/04/2019 10:41:40 04/27/20 14 Colonoscopy completed Lizette Christian [facility] 08/09/2021 23:41:18 Gastric bypass for obesity completed [facility]note 3[place] 12/02/2019 17:33:37 release of tendon completed [facility]note 3[place] 12/02/2019 17:34:53 injection of cortisone completed [facility][note 3]/[place] 12/02/2019 17:35:54 procedure on wrist completed [facility]note 3[place] 12/02/2019 17:36:58 Knee Replacement completed [facility]note 3[place] 12/04/2019 10:41:02 Imaging Results None recorded. Procedure Notes None recorded. Medical Equipment None Reported. Allergies No known drug allergies Medications Name Sig Start Date Stop Date Status Note LastModified by Organization Details LastModified Time azithromyci n 250 mg tablet 12/03 completed Not Available Not Available Not Available Tubersol 5 tub. unit/0.1 mL intradermal injection solution Inject 0.1 mL by intraderm al route. 12/03 completed Not Available Not Available Not Available fluocinonid e 0.05 % topical ointment APPLY TO AFFECTED AREA NIGHTLY active Not Available Not Available No t Available amoxicillin 500 mg tablet TAKE 4 TABLETS BY MOUTH 1 HOUR PRIOR TO DENTAL APPT/ PROCEDURE 02/01 completed Not Available Not Available Not Available fluoxetine 20 mg capsule TAKE 1 CAPSULE BY MOUTH EVERY DAY 02/01 completed Not Available Not Available Not Available Gavilyte-C 240 gram-22.72 gram-6.72 gram-5.84 gram oral solution USE DIRECTED active Not Available Not Available No t Available Vitals Date Recorded Body height Body temperature Provider N easton and Address Organization Details Last Updated DateTime 12/04/2019 175.26 cm 97.9 [degF] [facility][note 3[place] 12/04/2019 10:40:23 Date Recorded Body height Body mass index (BMI) Body weight Oxygen saturation Oxygen saturation in Arterial blood by Pulse oximetry Heart rate Body temperature Systolic And Diastolic Provider Name and Address Organization Details Last Updated DateTime 07/28/202 1 175.26 cm 31.3 kg/m2 92482.5 8 g 96 % 96 % 82 /min 97.7 [degF] 130/74 mm[Hg] MIGUEL VOGEL [facility]/[place] 12:39:00 Social History Question Answer Notes LastModified by Organizat ion Details LastModified Time Tobacco Smoking Status Never Smoker KAI NATALIE robles, [facility]- [place] 12/02/2019 17:32:17 How Many Years Have You Consumed Alcohol? 48 Information not available 02/01/2021 Are You Blind Or Do You Have Difficulty Seeing? No Information not available 02/01/2021 What Is Your Level Of Caffeine Consumption? Moderate Information not available 02/01/2021 Are You Deaf Or Do You Have Serious Difficulty Hearing? No Information not available 02/01/2021 What Type Of Diet Are You Following? REGULAR Information not available 02/01/2021 What Is The Highest Grade Or Level Of School You Have Completed Or The Highest Degree You Have Received? [id number] Information not available 02/01/2021 Who Is Your Employer? [employer] Information not available 02/01/2021 What Was The Date Of Your Most Recent Tobacco Screening? 02/01/2021 Information not available 02/01/2021 How Many Children Do You Have? 3 Information not available 02/01/2021 Have You Ever Been Counseled For Unhealthy Alcohol Use? No Information not available 02/01/2021 What Is Your Relationship Status? Information not available 02/01/2021 Do You Use Your Seat Belt Or Car Seat Routinely? Yes Information not available 02/01/2021 Are You Sexually Active? No Information not available 02/01/2021 Are There Any Smokers In Your House? No Information not available 02/01/2021 Do You Participate In Social Media? Yes Information not available 02/01/2021 What Types Of Sporting Activities Do You Participate In? Walking Information not available 02/01/2021 Do You Use Sunscreen Routinely? Yes Information not available 02/01/2021 Has Tobacco Cessation Counseling Been Provided? No Information not available 02/01/2021 On What Date Was Tobacco Cessation Counseling Provided? 02/01/2021 Information not available 02/01/2021 Have You Recently Traveled Abroad? No Information not available 02/01/2021 Are You Currently In School? No Information not available 02/01/2021 Sex: Unknown Functional Status Question Answer Note LastModified by Organizat ion Details LastModified Time Do you use any illicit or recreational drugs? No Information not available 02/01/2021 Do you or have you ever used any other forms of tobacco or nicotine? No Information not available 02/01/2021 What is your level of alcohol consumption? Moderate Information not available 02/01/2021 Are you currently employed? Yes Information not available 02/01/2021 Do you have transportation difficulties? No Information not available 02/01/2021 Are you able to walk? YESWOREST Information not available 02/01/2021 Are you able to care for yourself? 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 No Information not available 02/01/2021 Do you or have you ever used e-cigarettes or vape? Never used electronic cigarettes [email or web address] Information not available 12/02/2019 What is your exercise level? Occasional Information not available 02/01/2021 Mental Status Question Answer Note LastModified by Organizat ion Details LastModified Time Do you feel stressed (tense, restless, nervous, or anxious, or unable to sleep at night)? [id number] Information not available 02/01/2021 Do you have difficulty concentrating, remembering or making decisions? No Information no t available 02/01/2021 Family History Relationship Description Onset Age of this Age Resolved Age Notes LastModified by Organization Details LastModified Time Father No current problems or disability [email or web address] Not available 17:30:52 Mother No current problems or disability [email or web address] Not available 17:30:52 Medical History No medical history recorded. Gynecological History Statement/Question Response 02/03/2019 07/08/2014 Most Recent Bone Density 07/08/2014 07/08/2014 Obstetrics History GPAL:G 0 P 0 0 0 0 Immunizations Vaccine Type Date Status Note Provider Nam e and Address Organization Details Recorded Time pneumococcal polysaccharide PPV23 1 completed [facility] 02/01/2021 14:19:50 zoster live 5 completed [facility] 02/01/2021 12:39:39 Influenza, split virus, trivalent, PF 9 completed [facility] 02/01/2021 12:39:39 COVID-19, mRNA, LNP-S, PF, 30 mcg/0.3 mL dose 0 completed [facility] 02/01/2021 12:39:39 COVID-19, mRNA, LNP-S, PF, 30 mcg/0.3 mL dose 1 completed [facility] 02/01/2021 12:39:39 Pneumococcal conjugate PCV 13 7 completed [facility]/[place] 02/01/2021 12:39:39 Influenza, high-dose, quadrivalent, PF 0 completed [facility] 02/01/2021 12:39:39 COVID-19, mRNA, LNP-S, PF, 30 mcg/0.3 mL dose 1 completed [facility] 02/01/2021 12:39:39 Influenza, adjuvanted, quadrivalent, PF 1 completed Tiffany Jaramillomyrongisella robles, [facility]- [place] 03/28/2021 07:41:39 zoster recombinant 1 completed Tiffany Jaramilloluh travis, [facility]- [place] 03/28/2021 07:42:05 Past Encounters Encounter ID Performer Location Encounter Start Date Encounter Closed Date Diagnosis/Indication Diagnosis SNOMED-CT Code Diagnosis ICD10 Code Diagnosis Note [id number] Margarito Jung, DO [facility] [address] [place] [address] 08/11/2019 11:29:01 08/11/2019 11:52:20 Tuberculosis screening 225556419 Z11.1 [id number] Margarito Jung, DO [facility] [address] [place] [address] 12/04/2019 10:38:27 12/04/2019 11:14:47 Adult health examination 889463604 Z00.00 PREVENTATI VE GENERAL MEDICAL EXAM A. Recommenda tions: 150 minutes of aerobic activity weekly or 10,000 steps daily along with 3-5 days of core strengthen ing activity; SPF 15 or greater sunscreen applied 30 minutes prior to sun exposure and every 2-3 hours if needed; maintenanc e of a body mass index of 18.5 to 25 and/or waist line less than 40 for men or 35 for women. Consider Body Compostion testing to accurately asses muscle and fat percentage s and determine resting metabolic rate and calorie count needed. Should attempt to track calories at web sites such as [employer] Recommend Biannual dental visits, routine opthalmolo gic visits. Recommend discussing with family a living will such as 5 wishes. Recommend viewing www. aafp.org for screening and clinical recommenda tions regarding current guidelines in health care. Handout given today discussing preventati ve and periodic health maintenanc e as recommende d by AAFP/USPTF . B. Screening tests and immunizati on provided or discussed today Screening for disorder 374869761 Z13.9 Alcohol screen was reviewed-s ee attached form-No concerns of alcohol abuse-2 minutes. Depression screen was reviewed-s ee attached form-No concerns of depression -2 minutes. Narcotic screen was reviewed-s ee attached form-No concerns of narcotic abuse-2 minutes Screening for malignant neoplasm of breast 435840043 Z12.39 Depressive disorder 3548 9007 F32.9 A. Discussed both short-term and long-term goals as well as urgent or emergent followup. B. No medication changes today and refills given. History of bypass of stomach 021082089 Z98.84 Knee pain 53382032 M25.5 69 Osteoarthritis 916832621 M19.90 Screening for malignant neoplasm of colon 842945766 Z12.11 Screening for osteoporosis 914058039 Z13.820 Hyperlipidemia 66913597 E78.5 [id number] Denzel Thakkar MD [facility] [address] [place] [address] 02/01/2021 12:05:36 02/01/2021 13:48:55 Advance directive discussed with patient 376939994 Z71.89 Patient counseled on advanced care planningpa repare document provided Depression screening 171 997097 Z13.31 Depression Screening Negative Risk assessment done 712 138596 Z76.89 Fall Risk Screening Negative Screening procedure 2012 5006 Z13.9 Pain Screening NEGATIVE Urine screening due 1712 96489 Z78.9 Urinary/Bl adder incontinen ce screening was NEGATIVE Screening for malignant neoplasm of colon 072682633 Z12.11 refer for 5 year scope due in 2020 Major depr ession in remission 00745793 F32.5 on fluoxetine for years, has been off of fluoxetine for 3 weeks having run out. Feeling very well denies any symptoms of depression . We have decided to stay off of fluoxetine for the for now, observe for any recurrence of symptoms. We will schedule a follow-up in 3 months to reassess ongoing need. Catheter will reach out to us if she has any concerns between now and then. History of bariatric surgical procedure 455777537 Z98.84 2008taking vitaminsbl ood ordered Osteoarthritis 120199632 M19.90 Edema of l ower extremity 586260381 R60.0 bilateralm ost likely rlated to venous insufficie ncy and sittingblo od ordered Administra tion of pneumococcal vaccine 43896699 Z23 pcv 23 today Screening for malignant neoplasm of breast 366440352 Z12.39 Active or passive immunization 259153300 Z23 shingles vaccine will get at [facility] Viral screening 75265214 4 Z11.52 hep c antioody ordered Health Concerns Section Related Observation LastModified by Organization Detai ls LastModified Time None Recorded Concern Status LastModified by Organization Details LastModified Time None Recorded Advance Directives Directive None Recorded Payers Insurance Date Sequence Insurance Name Policy Number Policy Rios Covered Member ID Rios Member ID Guarantor Name 04/03/2023 1 [place] Laurenpatrick Giron [id number] Lauren Giron 04/03/2023 2 AARP (MEDICARE SUPPLEMENT) Laurenpatrick Giron [id number] Lauren Giron Notes Date Note Type Note Provider Name and Address Organization Details Recorded Time 12/04/2019 text/html Medicare AWVRepo rted bypatient.Diet and Nutrition:healthy diet; discussed vitamin and supplement use; discussed portion control; discussed maintaining calcium balance; discussed diet improvement Medication Review:has medications at home and can afford medications; taking medications as prescribed and directed Fracture Risk:no history of fractures Physical Activity:good physical condition Depression Risk:Assessed by PHQ 2/9, see results Orientation:no disorientation to time; no disorientation to date; no disorientation to place Concentration and Memory:no decreased concentrating ability; no memory lapses or loss Speech/Motor difficulties:no speech difficulties; no difficulty expressing formulated concepts Hearing:no loss of hearing Vision:no vision problems Activities of Daily Living:able to bathe with limited or no assistance; able to contol urination and bowels; able to dress with limited or no assistance; able to feed self with limited or no assistance; able to get out of chair or bed with limited or no assistance; able to groom with limited or no assistance; able to toilet with limited or no assistance Instrumental Activities of Daily Living:able to do house work with limited or no assistance; able to grocery shop with limited or no assistance; able to manage medications with limited or no assistance; able to manage money with limited or no assistance; able to prepare meals with limited or no assistance; able to use the phone with limited or no assistance Home Safety:no unsafe mary hazzards; no unsafe stairs; no unsafe gas appliances PREVENTATIVE GENERAL MEDICAL EXAM A. Colon cancer screening: Denies any personal or 1st degree family history of colon cancer. Last Colonoscopy: 2014 B. Cardiovascular screening: Asymptomatic. C. Breast/ screening: Denies any personal or 1st degree family history of breast or cancer. Asymptomatic. Last PAP: na due to age Last Mammogram: 01/23- D. Diet: healthy Exercise minutes/week: 2-3 times a week E. Immunizations: Tdap < 10 Flu 04/25 F. Dermatologic: Does use SPF 15 or greater sunscreen. G. Osteoporosis screening: No history of fragility fractures or early osteoporosis concerns. Last DEXA: DUE H. Dental: Has Biannual dental visits. I. Vision: Has routine eye visits. No personal or family history of Glaucoma. J. Other: No abuse concerns. Wears a seatbelt. K. Recent hospitalizations: none L. Other Physicians involved in care: none M. Due for labs: yes N. Needs Rx refills: yes O. Has Biometric forms that need completed: not at the moment P. Due for CAGE screening: completed . Mood disorder: denies irritability, sleep disturbance, loss of energy, poor concentration, appetite changes, anhedonia and motivation problems. Denies current HI/SI. Tolerating medication well with overall improvement of symptoms. Margarito Felix ne, DO [address], [place], [address], [facility]- [place] 12/04/2019 11:11:20 02/01/2021 text/html Medicare AWVRepo rted bypatient.Diet and Nutrition:healthy diet; discussed vitamin and supplement use; discussed portion control; discussed maintaining calcium balance; discussed diet improvement Medication Review:has medications at home and can afford medications; taking medications as prescribed and directed Fracture Risk:no history of fractures Physical Activity:good physical condition Depression Risk:Assessed by PHQ 2/9, see results Orientation:no disorientation to time; no disorientation to date; no disorientation to place Concentration and Memory:no decreased concentrating ability; no memory lapses or loss Speech/Motor difficulties:no speech difficulties; no difficulty expressing formulated concepts Hearing:no loss of hearing Vision:no vision problems Activities of Daily Living:able to bathe with limited or no assistance; able to contol urination and bowels; able to dress with limited or no assistance; able to feed self with limited or no assistance; able to get out of chair or bed with limited or no assistance; able to groom with limited or no assistance; able to toilet with limited or no assistance Instrumental Activities of Daily Living:able to do house work with limited or no assistance; able to grocery shop with limited or no assistance; able to manage medications with limited or no assistance; able to manage money with limited or no assistance; able to prepare meals with limited or no assistance; able to use the phone with limited or no assistance Home Safety:no unsafe mary hazzards; no unsafe stairs; no unsafe gas appliancesOpioid Use AssessmentReported bypatient.Current Use of Opioids :no use of opioids (no further questions required) Patient is here for their Medicare AWV evaluation as well as complete preventative evaluation including full physical exam as well as full review and ACTIVE MANAGEMENT of any chronic medical issues and any new issues reported. Functional status and medical directives as documented in social history. INitial visi with me generally healthy over due for c-scope , last 2014 skin lesion left lower leg, present for years, has esen dermatology, intermittently itchy, toipcal fluocinonide prn Mood disorder: on fluoxideitne for 20 years for depression , has had cousneling in past, ran out of this 3 weeks ago. Does not feel different at all Moved from [place] [address] 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
--- OUTSIDE RECORDS SUMMARY | 2025-01-19 18:52 | XMS_ITS | Clinical Summary ---
Author Organization [facility] Address [address] [place] [address] Care Team Providers Care Master Data Analyst Name Role Phone Partha Owen NP Primary Care Provider [phone] Allergies No known active allergies Medications FLUoxetine (PROZAC) 20 mg capsule Take 20 mg by mouth daily. Active Multiple Vitamins-Mineral s (MULTIVITAMIN WITH MINERALS) tablet Take 1 tablet by mouth daily. Active vitamin B12 (CYANOCOBALAMIN) 500 mcg tablet Take 500 mcg by mouth daily. Active ferrous sulfate 325 (65 Fe) MG TABS Take by mouth. Active Glucosamine-Manuel droit-Vit C-Mn (GLUCOSAMINE CHONDROITIN COMPLX) CAPS Take by mouth. Active ibuprofen (MOTRIN) 200 mg tablet Take 200 mg by mouth every 8 (eight) hours as needed for Pain. Active Active Problems Problem Noted Date Diagnosed Date Closed Colles' fracture of r ight radius with routine healing 09/27/2016 Social History Tobacco Use Types Packs/Day Years Used Date Smoking Tobacco: Never Smokeless Tobacco: Never Alcohol Use Standard Drinks/Week Comments Yes 1 (1 standard drink = 0.6 oz pur e alcohol) nightly or 5x per week Comments No Sex and Gender Information Value Date Recorded Sex Assigned at Not on file Legal Sex Female 3:08 PM [facility] Gender Identity Not on file Sexual Orientation Not on file Last Filed Vital Signs Vital Sign Reading Time Taken Comments Blood Pressure 160/78 09/27/2016 12:45 PM [facility] Pulse 82 09/27/2016 12:45 PM [facility] Temperature 36.6 C (97.9 F) 09/27/2016 12:45 PM [facility] Respiratory Rate 18 09/27/2016 12:4 5 PM [facility] Oxygen Saturation 97% 09/27/2016 12: 45 PM [facility] Inhaled Oxygen Concentration - - Weight 90.2 kg (198 lb 13.7 oz) 09/27/2016 8:40 AM [facility] Height 175.3 cm (5' 9) 09/27/2016 8:40 AM [facility] Body Mass Index 29.37 09/27/2016 8:40 AM [facility] Plan of Treatment Not on file Medical Devices Implanted Type Area Field Crop Farming Supervisor Device Identifier Shelf Expiration Date Model / Serial / Lot Pin Syn Lock Buttress Jennie Ang 1.8 X 20mm T8 - [id number] Implanted:Qty: 2 on 09/27/2016 by Theo Pinzon MD at [facility] Pin Right: Radius DEPUY SYNTHES 210.090 / / Pin Syn Lock Buttress Jennie Ang 1.8 X 22mm T8 - [id number] Implanted:Qty: 1 on 09/27/2016 by Theo Pinzon MD at [facility] Pin Right: Radius DEPUY SYNTHES .210.092 / / Plate Syn 2.4 Lcp Dist Rad Vol 8h/2sh 6hd Rt - [id number] Implanted:Qty: 1 on 09/27/2016 by Theo Pinzon MD at [facility] Plate Right: Radius DEPUY SYNTHES 02.111.620 / / Screw Syn Cortex Stardrive 2.[address] - [id number] Implanted:Qty: 1 on 09/27/2016 by Theo Pinzon MD at [facility] Screw Right: Radius DEPUY SYNTHES 201.770 / / Screw Syn Cortex Stardrive 2.[address] - [id number] Implanted:Qty: 1 on 09/27/2016 by Theo Pinzon MD at [facility] Screw Right: Radius DEPUY SYNTHES 201.768 / / Screw Syn Lock Stardrive Jennie Ang 2.[address] - [id number] Implanted:Qty: 1 on 09/27/2016 by Theo Pinzon MD at [facility] Screw Right: Radius DEPUY SYNTHES 02.210.112 / / Screw Syn Cortex Stardrive 2.[address] - [id number] Implanted:Qty: 1 on 09/27/2016 by Theo Pinzon MD at [facility] Screw Right: Radius DEPUY SYNTHES 201.762 / / Screw Syn Cortex Stardrive 2.[address] - [id number] Implanted:Qty: 1 on 09/27/2016 by Theo Pinzon MD at [facility] Screw Right: Radius DEPUY SYNTHES 201.764 / / Explanted Type Area Field Crop Farming Supervisor Device Identifier Shelf Expiration Date Model / Serial / Lot Screw Syn Lock Stardrive Jennie Ang 2.[address] - [id number] Explanted:Qty: 1 on 09/27/2016 by Theo Pinzon MD at [facility] Screw Right: Radius DEPUY SYNTHES 02.210.110 / / Insurance MEDICARE PART A B [facility] MEDICARE PART A B [facility] MEDICARE PART A B [facility] MEDICARE PART A B [facility] Advance Directives For more information, please contact: [phone] * Full Code (Latest Code Status on File) Date Activated Date Inactivated Comments 09/27/2016 8:21 AM 09/27/2016 3:14 PM Care Teams Master Data Analyst Relationship Specialty Start Date End Date Partha Owen NP PCP - General Nurse Practitioner 09/27/16
[2025-01-19] MEDS: ONDANSETRON 2 MG/ML inj 4 MG IVP (18:59)
[2025-01-19 19:02] LABS: Lactate* 1.4 mmol/L (0.5-1.9)
[2025-01-19 19:04] LABS: Hematocrit* 37.8 % (33.0-51.0); Hemoglobin* 12.4 gm/dL (12.0-16.0); Immature Granulocytes Pct Auto 0.3 %; Mean Corpuscular HGB Conc 33 gm/dL (32-36); Mean Corpuscular Hemoglobin 36 pg (26-34); Mean Corpuscular Volume 108 fL (80-100); RDW Coefficient of Variation % 14.3 % (11.5-15.5); Red Blood Count* 3.49 m/uL (4.00-5.20); White Blood Count* 3.34 K/uL (4.50-11.00)
[2025-01-19 19:21] LABS: Immature Granulocytes Abs Auto 0.00 K/uL (0.00-0.30); Lymphocytes Absolute Auto 0.40 K/uL (0.90-2.90); Slide Review Reflex No
[2025-01-19 19:25] LABS: Albumin* 3.8 g/dL (3.3-5.0); Chloride* 101 mmol/L (96-114)
[2025-01-19 19:26] LABS: Potassium* 3.3 mmol/L (3.6-5.1); Sodium* 134 mmol/L (135-149)
[2025-01-19 19:28] LABS: Alanine Aminotransferase* 63 U/L (4-35); Alkaline Phosphatase* 123 U/L (40-150); Anion Gap 7 mEq/L (7-15); Aspartate Amino Transferase* 100 U/L (12-35); Bilirubin Total* 0.7 mg/dL (0.1-1.5); Blood Urea Nitrogen* 5 mg/dL (7-30); Carbon Dioxide* 26 mmol/L (20-32); Creatinine* 0.6 mg/dL (0.5-1.5); Est. Creatinine Clearance* 50.54; Estimated Glomerular Filt Rate 95 ml/min; Total Protein* 7.2 g/dL (6.0-8.3)
[2025-01-19 19:29] LABS: Calcium* 9.6 mg/dL (8.4-10.6); Glucose* 116 mg/dL (60-115)
--- NOTE | 2025-01-19 19:44 | CRLHL7_ITS ---
For Patients: As a result of the Century Cures Act, medical imaging exams and procedure reports are released immediately into your electronic medical record. You may view this report before your referring provider. If you have questions, please contact your health care provider. INDICATION: Dehydrated, diarrhea, fatigue. TECHNIQUE: CT abdomen and pelvis acquired with 100 cc Omnipaque 350 IV contrast. COMPARISON: None. FINDINGS: Lower chest: Scattered atelectasis. Liver: Hepatic steatosis.. No suspicious masses. Gallbladder and bile ducts: Unremarkable. No stones or inflammation. No biliary dilatation. Pancreas: Unremarkable. No mass or inflammation. Spleen: Unremarkable. Normal in size. No masses. Adrenal glands: Unremarkable. No nodules. Kidneys: Tiny cortical hypodensities, too small to characterize. No suspicious masses, stones, or hydronephrosis. GI tract: Gastric bypass. Normal in caliber. No sign of mass or inflammation. Appendix not definitely seen. Vasculature: Aortoiliac arterial calcifications. Abdominal aorta is normal in caliber. Mesenteric arteries are patent. Lymph nodes: No lymphadenopathy. Peritoneum/Abdominal Wall: Unremarkable. No sign of mass or infiltration. No free air or significant free fluid. Pelvis: Mildly distended bladder with circumferential wall thickening.. Bones: Degenerative changes. IMPRESSION: No acute intra-abdominal/pelvic abnormality. Hepatic steatosis. Please note that all CT scans at this facility use dose modulation, iterative reconstruction, and/or weight-based dosing when appropriate to reduce radiation dose to as low as reasonably achievable. Dictated by Jefry Pearson MD @ 01/19/2025 8:21:28 PM (Electronically Signed)
[2025-01-19] MEDS: POTASSIUM BICARB 25 MEQ EFFERVESCENT TAB 50 MEQ PO (20:03)
[2025-01-19] MEDS: cefTRIAXone 1 GM in 0.9 % SODIUM CHLORIDE Mini-bag 100 ML IVPB (20:03)
[2025-01-19 20:08] LABS: Mono Screen* Negative (Negative)
[2025-01-19 21:28] VITALS: BP 120/53; PULSE 92; RESP 18; TEMP 36.8
[2025-01-19 21:30] VITALS: PULSE 93; RESP 18; TEMP 36.8; O2SAT 96
[2025-01-21 15:02] LABS: Hep B Surface Antigen Negative (Negative); Hep C Ab by CIA Interp Negative (Negative)
--- NOTE | 2025-01-21 17:40 | ED.GENADULT ---
HPI - General Adult General Date Seen: 01/21/25 Chief complaint: Diarrhea Stated complaint: dehydrated, diarrhea, fatigue Time Seen by Provider: 01/19/25 17:59 History of Present Illness HPI narrative: Urine culture growing E coli. Sensitive to Bactrim. Patient on Bactrim. No change. Related Data Home Medications ?Medication ?Instructions ?Recorded ?Confirmed fluoxetine 40 mg capsule 40 mg PO DAILY 01/19/25 01/19/25 propranolol 20 mg tablet 20 mg PO BID 01/19/25 01/19/25 Previous Rx's ?Medication ?Instructions ?Recorded loperamide 2 mg capsule (Imodium 2 mg PO Q4H PRN loose stool #10 01/19/25 A-D) caps ondansetron 4 mg disintegrating 4 mg PO Q8H PRN nausea and 01/19/25 tablet vomiting #10 tabs sulfamethoxazole 800 1 tab PO Q12H 5 days #10 tabs 01/19/25 mg-trimethoprim 160 mg tablet (Bactrim DS) Allergies Allergy/AdvReac Type Severity Reaction Status Date / Time No Known Drug Allergies Allergy Verified 01/19/25 19:56 Course Vital Signs Vital signs: Initial Vital Signs Temperature 99.2 F 01/19/25 17:59 Temperature Source Temporal Artery Scan 01/19/25 17:59 Pulse Rate 85 01/19/25 17:59 Pulse Rhythm Regular 01/19/25 17:59 Pulse Strength 3+ Normal 01/19/25 17:59 Respiratory Rate 18 01/19/25 17:59 Blood Pressure 122/63 01/19/25 17:59 Blood Pressure Mean 82 01/19/25 17:59 Blood Pressure Position Sitting 01/19/25 17:59 Pulse Oximetry 97 01/19/25 17:59 Oxygen Delivery Method Room Air 01/19/25 17:59 Vital Signs Temperature 99.2 F 01/19/25 17:59 Pulse Rate 85 01/19/25 17:59 Respiratory Rate 18 01/19/25 17:59 Blood Pressure 122/63 01/19/25 17:59 Pulse Oximetry 97 01/19/25 17:59 Oxygen Delivery Method Room Air 01/19/25 17:59 Temperature 98.2 F 01/19/25 21:30 Pulse Rate 93 01/19/25 21:30 Respiratory Rate 18 01/19/25 21:30 Blood Pressure 120/53 L 01/19/25 21:28 Pulse Oximetry 96 01/19/25 21:30 Oxygen Delivery Method Room Air 01/19/25 21:30 Medications Administered Medications: Discontinued Medications Generic Name Dose Route Start Last Admin Trade Name Maria R PRN Reason Stop Dose Admin Sodium Chloride 1,000 mls @ 1,000 mls/hr 01/19/25 18:30 01/19/25 19:42 0.9 % Sodium Chloride 1000 Ml IV 01/19/25 19:29 Infused .Q1H PIERRE Infusion Ceftriaxone Sodium 1 gm/ 100 mls @ 200 mls/hr 01/19/25 19:46 01/19/25 20:48 Sodium Chloride IVPB 01/19/25 19:47 Infused ONCE ONE Infusion Ondansetron HCl 4 mg 01/19/25 18:30 01/19/25 18:59 Ondansetron 2 Mg/Ml Inj IVP 01/19/25 18:31 4 mg ONCE ONE Administration Potassium Bicarbonate 50 meq 01/19/25 19:45 01/19/25 20:03 Potassium Bicarb 25 Meq Effervescent Tab PO 01/19/25 19:46 50 meq ONCE ONE Administration Medical Decision Making Lab Data Labs: Lab Results 01/19/25 01/19/25 Range/Units 18:31 18:55 WBC 3.34 L (4.50-11.00) K/uL RBC 3.49 L (4.00-5.20) m/uL Hgb 12.4 (12.0-16.0) gm/dL Hct 37.8 (33.0-51.0) % MCV 108 H (80-100) fL MCH 36 H (26-34) pg MCHC 33 (32-36) gm/dL RDW Coeff of Jennie 14.3 (11.5-15.5) % Plt Count 139 L (140-440) K/uL Neut % (Auto) 69.1 (42.0-72.0) % Lymph % (Auto) 13.2 L (20-44) % [place] % (Auto) 14.1 H (0.0-11.0) % Eos % (Auto) 2.7 (0.0-7.0) % Baso % (Auto) 0.6 (0.0-3.0) % Neut # (Auto) 2.30 (1.7-7.0) K/uL Lymph # (Auto) 0.40 L (0.90-2.90) K/uL [place] # (Auto) 0.50 (0.00-0.90) K/UL Eos # (Auto) 0.10 (0.00-0.50) K/uL Baso # (Auto) 0.00 (0.00-0.30) K/uL Abs Immat Gran (auto) 0.00 (0.00-0.30) K/uL Imm/Tot Granulo (auto) 0.3 % Sodium 134 L (135-149) mmol/L Potassium 3.3 L (3.6-5.1) mmol/L Chloride 101 (96-114) mmol/L Carbon Dioxide 26 (20-32) mmol/L Anion Gap 7 (7-15) mEq/L BUN 5 L (7-30) mg/dL Creatinine 0.6 (0.5-1.5) mg/dL Estimated Creat Clear 50.54 Estimated GFR 95 ml/min Glucose 116 H (60-115) mg/dL Lactate 1.4 (0.5-1.9) mmol/L Calcium 9.6 (8.4-10.6) mg/dL Total Bilirubin 0.7 (0.1-1.5) mg/dL AST 100 H (12-35) U/L ALT 63 H (4-35) U/L Alkaline Phosphatase 123 (40-150) U/L Total Protein 7.2 (6.0-8.3) g/dL Albumin 3.8 (3.3-5.0) g/dL Lipase 222 (23-300) U/L Urine Color Blossom A (Yellow) Urine Appearance Clear (Clear) Urine pH 6.0 (5.0-8.5) Ur Specific [place] 1.025 (1.000-1.030) Urine Protein 1+ A (Negative) Urine Glucose (UA) Negative (Negative) Urine Ketones 2+ A (Negative) Urine Blood 1+ A (Negative) Urine Nitrite Positive A (Negative) Urine Bilirubin Negative (Negative) Urine Urobilinogen 0.2 (0.2-1.0) Ur Leukocyte Esterase 1+ A (Negative) Urine RBC 2-5 A (0-2) Urine WBC 5-10 A (0-5) Ur Squamous Epith Cells Moderate A (None-Few) Urine Bacteria Moderate A (None) Fine Granular Casts Few A (None) Hepatitis A IgM Ab Negative (Negative) Hep Bs Antigen Negative (Negative) Hep B Core IgM Ab Negative (Negative) Hep C Ab Index (QUIRINO) 0.02 IV Hep C Ab Interp QUIRINO Negative (Negative) Hepatitis Interpret See Note Monoscreen Negative (Negative) Discharge Plan Discharge Clinical Impression: Diarrhea, Dehydration, Acute hypokalemia, Abnormal LFTs, Acute UTI Patient Disposition: Home, Self-Care Condition: Guarded Instructions: Dehydration (ED), Urinary Tract Infection in Women (DC), Acute Diarrhea (ED) Additional Instructions: As we discussed, the cause for symptoms is not clear at this time. We suspect that your diarrhea is probably caused by an infection. Your lab results suggest the infection may be viral but given your recent travel and the mucus in your stool we have ordered a stool culture to check for bacterial infections causing your diarrhea. If your cultures come back positive with bacteria someone from the hospital will contact you and put you on the right antibiotic. If your infection is viral, it may take a few more days and it should get better on its own. Urine sample is abnormal, suggesting you have a bladder infection. Please take the antibiotic twice a day to treat your bladder infection. The ER will contact you by phone if your urine culture grows unusual strain of bacteria or if we need to change the antibiotic for your UTI. If you are not dramatically improved within 72 hours, please recheck with your doctor's office or come back to the ER for a recheck. While you are sick, do your best to drink plenty of fluids and stay hydrated. You can use the Zofran prescription medication if needed for nausea. You can use Imodium as needed for diarrhea. Imodium is available [id number], but I did send a prescription for Imodium to your pharmacy at [facility] (you can purchase the Imodium by prescription or OTC, whichever is less expensive). Your lab work shows that your blood counts (white blood cells and platelets) are slightly low and your liver function tests are slightly off. These could be related to the same infection. However it is very important for you to get a checkup with your regular doctor within the next couple of weeks to have these labs rechecked. Prescriptions: New loperamide [Imodium A-D] 2 mg capsule 2 mg PO Q4H PRN (Reason: loose stool) Qty: 10 0RF Rx Instructions: administer after each loose stool until symptoms controlled; do not exceed 8 mg per 24 hrs sulfamethoxazole-trimethoprim [Bactrim DS] 800-160 mg tablet 1 tab PO Q12H 5 Days Qty: 10 0RF ondansetron 4 mg tablet,disintegrating 4 mg PO Q8H PRN (Reason: nausea and vomiting) Qty: 10 0RF No Action propranolol 20 mg tablet 20 mg PO BID fluoxetine 40 mg capsule 40 mg PO DAILY Follow Up/Referrals: Provider,Not a Local [Primary Care Provider, Family Practice] Stand Alone Forms: MyHealth Info Instructions
== END 2025-01-19 21:36 | disposition home or self-care (01) ==
PROVIDERS: Emergency Provider Emergency Medicine
DX: R19.7 Diarrhea, unspecified (principal); E87.6 Hypokalemia; R94.5 Abnormal results of liver function studies; N39.0 Urinary tract infection, site not specified
CPT/HCPCS: 36415; 74177; 80053; 80074; 81001; 83605; 83690; 85025; 86308; 87045; 87046; 87086; 87427; 87493; 96365; 96375; 99281; 99283; 99284; A9270; J0696; J2405; J7030; Q9967